=== PATIENT | male | born 1930 | race Caucasian/White ===

== ENCOUNTER 2017-01-19 12:48 | Inpatient (IN) | payer MEDICARE, BC ==
[~2017-01-19] VITALS: Ht 180.3 cm; Wt 72.6 kg
[2017-01-19 13:01] VITALS: BP 136/106
[2017-01-19 14:07] LABS: BASOPHILS % (AUTO) 1.1 % (0.0-2.0); EOSINOPHILS % (AUTO) 1.6 % (0.0-3.0); LYMPHOCYTES % (AUTO) 17.6 % (20.0-45.0); MEAN CORPUSCULAR HEMOGLOBIN 28.6 PG (27.0-31.0); MEAN CORPUSCULAR HGB CONC 30.8 G/DL (32.0-36.0); MEAN CORPUSCULAR VOLUME 93 FL (80-99); MEAN PLATELET VOLUME 10.8 FL (6.5-10.1); MONOCYTES % (AUTO) 8.7 % (1.0-10.0); PLATELET COUNT 175 K/UL (150-450); WHITE BLOOD COUNT 10.1 K/UL (4.8-10.8)
[2017-01-19 14:24] LABS: TROPONIN I < 0.30 ng/mL (<=0.30)
[2017-01-19 14:29] LABS: REFLEX LACTIC ACID YES OR NO YES
[2017-01-19 14:30] VITALS: BP 101/84
--- NOTE | 2017-01-19 14:42 | Diagnostic Imaging Report ---
Indications: Chest pain Technique: Portable AP chest Findings: Comparison: 04/21/2013 Cardiac silhouette remains upper limits of normal in size. Pulmonary vasculature remains within normal limits. Lungs and pleura remain clear. Left chest wall pacemaker remains in place.. IMPRESSION: No evidence of acute disease, unchanged Stable chronic changes as described
[2017-01-19 14:55] LABS: APPEARANCE,URINE CLEAR; KETONES,URINE NEGATIVE (NEGATIVE); LEUKOCYTE ESTERASE ,URINE NEGATIVE (NEGATIVE); NITRITE,URINE NEGATIVE (NEGATIVE); PH,URINE 7 (4.5-8.0); PROTEIN,URINE NEGATIVE (NEGATIVE); UROBILINOGEN,URINE NORMAL MG/DL (0.0-1.0)
--- NOTE | 2017-01-19 15:53 | Diagnostic Imaging Report ---
Indications: Altered mental status Technique: Continuous helical CT imaging of the brain was performed with automatic exposure control on a Siemens sensation [address] scanner. Axial and coronal images were reconstructed at 5 mm slice thickness and interval. CTDI volume(s): 70 mGy Total DLP: 1393 mGy-cm Findings: Comparison: 04/21/2013 Confluent low attenuation compatible with chronic microvascular ischemic changes throughout the bilateral cerebral periventricular and deep white matter has significantly increased in prominence in extent. Superimposed focal low-attenuation now noted extending through the left putamen into the left coronary. Prominence of ventricles, cisterns, and sulci has also increased.. No evidence of mass or hemorrhage, mass effect, midline shift, hydrocephalus or increased intracranial pressure. Bone window images are unremarkable. Visualized paranasal sinuses and mastoid air cells are clear. IMPRESSION: New low-attenuation left basal ganglia/xiao radiata most likely infarct, acuity indeterminate. Consider MRI for further evaluation as clinically indicated.. Progression of chronic microvascular ischemic changes throughout the bilateral white matter Progression of atrophy The CT scanner at [facility] is accredited by the [employer] and the scans are performed using protocols designed to limit radiation exposure to as low as reasonably achievable to attain images of sufficient resolution adequate for diagnostic evaluation.
[2017-01-19] MEDS ORDERED: LEVOTHYROXINE75 MCG ORAL (16:19)
[2017-01-19] MEDS ORDERED: CULTURELLE1 EACH ORAL (16:19)
[2017-01-19] MEDS ORDERED: TYLENOL EXTRA500 MG ORAL (16:19)
[2017-01-19] MEDS ORDERED: POTASSIUM CHLO10 ME3 ORAL (16:19)
[2017-01-19] MEDS ORDERED: ACETAMINOPHEN120 MG RECTAL (16:19)
[2017-01-19] MEDS ORDERED: NAMENDA10 MG ORAL (16:19)
[2017-01-19] MEDS ORDERED: SPIRONOLACTONE1 EACH ORAL (16:19)
[2017-01-19] MEDS ORDERED: ATROVENT HFA12.9 GM IH (16:19)
[2017-01-19] MEDS ORDERED: PRAVASTATIN SOD20 M1 ORAL (16:19)
[2017-01-19] MEDS ORDERED: AMIODARONE HCL400 M1 ORAL (16:19)
[2017-01-19] MEDS ORDERED: FUROSEMIDE20 M1 ORAL (16:19)
[2017-01-19] MEDS ORDERED: ASPIR 8181 MG ORAL (16:19)
[2017-01-19] MEDS ORDERED: LOSARTAN POTASS50 MG ORAL (16:19)
[2017-01-19] MEDS ORDERED: VITAMIN D400 INTLU ORAL (16:19)
[2017-01-19] MEDS ORDERED: MIRALAX17 G2 ORAL (16:19)
[2017-01-19] MEDS ORDERED: ELIQUIS2.5 MG PO (16:19)
[2017-01-19] MEDS ORDERED: ARICEPT10 MG ORAL (16:19)
[2017-01-19] MEDS ORDERED: ATENOLOL50 MG ORAL (16:19)
[2017-01-19] MEDS ORDERED: LORazepam Inj 2mg/ml 1ml IV PRN (16:30)
[2017-01-19] MEDS ORDERED: Mylanta II UD 30ml ORAL PRN (16:30)
[2017-01-19] MEDS ORDERED: Nitroglycerin Subl 0.4mg tab (Bottle Of 25) SL PRN (16:30)
[2017-01-19] MEDS ORDERED: Morphine Sulfate 2mg/ml Inj IVP PRN (16:30)
[2017-01-19] MEDS ORDERED: DuoNeb 0.5-3(2.5)mg/3ml neb HHN PRN (16:30)
[2017-01-19] MEDS ORDERED: Promethazine/Codeine 5ml UD ORAL PRN (16:30)
[2017-01-19] MEDS ORDERED: Miralax 17gm pkt ORAL PRN (16:30)
[2017-01-19 16:39] LABS: ALANINE AMINOTRANSFERASE 24 U/L (3-41); ALBUMIN/GLOBULIN RATIO 1.1 (1.0-2.7); ANION GAP 14 (5-15); ASPARTATE AMINO TRANSFERASE 25 U/L (5-40); CALCIUM 8.9 mg/dL (8.6-10.2); CARBON DIOXIDE 25 mEQ/L (20-30); CHLORIDE 99 mEQ/L (98-107); HEMOLYSIS 6; POTASSIUM 4.2 mEQ/L (3.4-4.9); SODIUM 138 mEQ/L (135-145); TOTAL PROTEIN 6.3 g/dL (6.6-8.7)
--- NOTE | 2017-01-19 17:15 | Emergency Room Report ---
History of Present Illness General Chief Complaint: Altered Level of Consciousness Source: Family Member, Medical Record, Caregiver Present Illness HPI 86-year-old male presents to ED for evaluation. Knife Edger at bedside states that patient was more altered usual today. Also desaturating on room air. Placed on oxygen. Initially hypotensive. Given IV fluids with BP improved. Upon arrival patient is lethargic. Unable to provide any additional history at this time. Denies any chest pain or shortness of breath. Reports fevers or chills. nephew at bedside who is power of assistant city attorney. States that patient has multiple history of strokes. No other aggravating or relieving factors. No other associated symptoms Allergies: Coded Allergies: No Known Allergies (Unverified , 01/19/17) Patient History Past Medical History: CVA/TIA Past Surgical History: none Pertinent Family History: none Social History: Denies: alcohol use, drug use, smoking Immunizations: UTD Reviewed Nursing Documentation: PMH: Agreed, PSxH: Agreed Nursing Documentation-PMH Past Medical History: No History, Except For Hx Cancer: Yes - prostate cancer, prostatectomy Hx Cerebrovascular Accident: Yes Review of Systems All Other Systems: negative except mentioned in HPI Physical Exam Vital Signs Date Time Temp Pulse Resp B/P Pulse Ox O2 Delivery O2 Flow Rate FiO2 01/19/17 12:46 78 20 110/72 88 Non-Rebreather 15.0 01/19/17 14:30 96.5 Sp02 EP Interpretation: reviewed, normal General Appearance: lethargic, thin Head: normocephalic, atraumatic Eyes: bilateral eye PERRL, bilateral eye normal inspection ENT: hearing grossly normal, normal pharynx, no angioedema, normal voice Neck: full range of motion, supple/symm/no masses Respiratory: chest non-tender, lungs clear, normal breath sounds, speaking full sentences Cardiovascular #1: regular rate, rhythm, no edema Cardiovascular #2: 2+ carotid (R), 2+ carotid (L), 2+ radial (R), 2+ radial (L) , 2+ dorsalis pedis (R), 2+ dorsalis pedis (L) Gastrointestinal: normal bowel sounds, non tender, soft, non-distended, no guarding, no rebound Rectal: deferred Genitourinary: normal inspection, no CVA tenderness Musculoskeletal: back normal, gait/station normal, normal range of motion, non- tender Neurologic: sensory intact, other - lethargic Psychiatric: other - lethargic Reflexes: 3+ bicep (R), 3+ bicep (L), 3+ tricep (R), 3+ tricep (L), 3+ knee (R) , 3+ knee (L) Skin: normal color, no rash, warm/dry, well hydrated Lymphatic: no adenopathy Medical Decision Making Diagnostic Impression: Primary Impression: Cerebrovascular accident (CVA) Qualified Codes: I63.9 - Cerebral infarction, unspecified Additional Impression: Altered level of consciousness ER Course Hospital Course 86-year-old male presents to ED with ALOC, history of stroke, lethargic Differential diagnoses include: MA/unstable angina, SVT/Vtach/AFib, CVA/TIA Clinical course Patient placed on stretcher. on assistant bookkeeper. After initial history and physical I ordered labs, EKG, chest x-ray, and CT head labs reviewed- electrolytes ok, troponins negative, no leukocytosis, Hb/Hct stable EKG - NSR Chest x-ray- no acute process CT brain - lacunar infarct noted ? acuity Given rectal aspirin in ED. Case discussed with PMD Dr Campo. asked that I admit to Dr Harris Power of assistant city attorney (nephew) is requesting that patient be made DO NOT RESUSCITATE. form signed by nephew. I. I feel this is a highly complex case requiring extensive working including EKG/Rhythm strip, Xray/CT/US, Blood/urine lab work, repeat exams while in ED, and administration of strong opiates/narcotics for pain control, admission to hospital or close patient follow up. Diagnosis - CVA/TIA, ALOC admitted to floor in serious condition Labs Test 01/19/17 13:55 01/19/17 14:43 01/19/17 16:00 White Blood Count 10.1 K/UL (4.8-10.8) Red Blood Count 4.90 M/UL (4.70-6.10) Hemoglobin 14.0 G/DL (14.2-18.0) Hematocrit 45.6 % (42.0-52.0) Mean Corpuscular Volume 93 FL (80-99) Mean Corpuscular Hemoglobin 28.6 PG (27.0-31.0) Mean Corpuscular Hemoglobin Concent 30.8 G/DL (32.0-36.0) Red Cell Distribution Width 16.0 % (11.6-14.8) Platelet Count 175 K/UL (150-450) Mean Platelet Volume 10.8 FL (6.5-10.1) Neutrophils (%) (Auto) 71.0 % (45.0-75.0) Lymphocytes (%) (Auto) 17.6 % (20.0-45.0) Monocytes (%) (Auto) 8.7 % (1.0-10.0) Eosinophils (%) (Auto) 1.6 % (0.0-3.0) Basophils (%) (Auto) 1.1 % (0.0-2.0) Lactic Acid Level 3.40 mmol/L (0.66-2.22) 3.40 mmol/L (0.66-2.22) Troponin I < 0.30 ng/mL (<=0.30) Urine Color Yellow Urine Appearance Clear Urine pH 7 (4.5-8.0) Urine Specific [place] 1.010 (1.005-1.035) Urine Protein Negative (NEGATIVE) Urine Glucose (UA) Negative (NEGATIVE) Urine Ketones Negative (NEGATIVE) Urine Occult Blood Negative (NEGATIVE) Urine Nitrite Negative (NEGATIVE) Urine Bilirubin Negative (NEGATIVE) Urine Urobilinogen Normal MG/DL (0.0-1.0) Urine Leukocyte Esterase Negative (NEGATIVE) Sodium Level 138 mEQ/L (135-145) Potassium Level 4.2 mEQ/L (3.4-4.9) Chloride Level 99 mEQ/L (98-107) Carbon Dioxide Level 25 mEQ/L (20-30) Anion Gap 14 (5-15) Blood Urea Nitrogen 21 mg/dL (7-23) Creatinine 1.0 mg/dL (0.7-1.2) Estimat Glomerular Filtration Rate mL/min (>60) Glucose Level 132 mg/dL (74-106) Calcium Level 8.9 mg/dL (8.6-10.2) Total Bilirubin 0.3 mg/dL (0.0-1.2) Aspartate Amino Transf (AST/SGOT) 25 U/L (5-40) Alanine Aminotransferase (ALT/SGPT) 24 U/L (3-41) Alkaline Phosphatase 79 U/L (40-129) Total Creatine Kinase 23 U/L (38-174) Creatine Kinase MB 2.0 ng/mL (< 6.7) Creatine Kinase MB Relative Index 8.6 Pro-B-Type Natriuretic Peptide 1728 pg/mL (0-450) Total Protein 6.3 g/dL (6.6-8.7) Albumin 3.3 g/dL (3.5-5.2) Globulin 3.0 g/dL Albumin/Globulin Ratio 1.1 (1.0-2.7) EKG Diagnostic Results Rate: normal Rhythm: NSR ST Segments: no acute changes ASA given to the pt in ED: No Rhythm Strip Diag. Results EP Interpretation: yes Rhythm: NSR, no PVC's, no ectopy Chest X-Ray Diagnostic Results EP Interpretation: No Findings: no consolidation, no effusion, no pneumothorax, no acute cardiopulmonary disease Number of Views: 1 CT/MRI/US Diagnostic Results CT/MRI/US Diagnostic Results : Imaging Test Ordered: CT Head Impression lacunar infarct ? acuity Last Vital Signs Date Time Temp Pulse Resp B/P Pulse Ox O2 Delivery O2 Flow Rate FiO2 01/19/17 16:21 60 20 97/38 100 Room Air 01/19/17 14:30 96.5 01/19/17 12:46 15.0 Status: improved Disposition: ADMITTED INPATIENT Condition: Serious Referrals: Ruba Campo MD (PCP) RADHA GIBBS M.D. Jan 19, 2017 17:15
[2017-01-19 17:52] VITALS: BP 133/64
[2017-01-19] MEDS: D5 1/2NS 1,000 ML IV SCH (18:11)
[2017-01-19] MEDS ORDERED: Haloperidol 5mg/ml Inj IM PRN (19:30)
[2017-01-19 20:00] VITALS: BP 109/54
[2017-01-19] MEDS ORDERED: Heparin 5000 units/ml inj SUBQ SCH (21:00)
[2017-01-19] MEDS: Eliquis 2.5mg tablet ORAL SCH (21:39)
[2017-01-19] MEDS: Donepezil 10mg tab ORAL SCH (21:39)
--- NOTE | 2017-01-19 22:08 | Consultation ---
DATE OF CONSULTATION: 01/19/2017 GERIATRIC MEDICINE CONSULTATION HISTORY OF PRESENT ILLNESS: Received a call from the emergency room that the patient was brought in for change of mentation. The patient has had a history of dementia Alzheimer's type as well as multiple strokes and high blood pressure and atrial fibrillation. He has a pacemaker. MEDICATIONS: He takes at home includes Aldactone 25 mg a day, Eliquis 2.5 mg twice a day, potassium 10 mEq daily, vitamin D 1000 units a day, multivitamin one a day, Namenda 10 mg twice a day, aspirin 81 mg a day, amiodarone 200 mg a day, Aricept 10 mg a day, MiraLax 17 g daily, Synthroid 75 mcg a day, Pravachol 40 mg a day, Cozaar 50 mg a day, Tenormin 50 mg a day and Lasix 20 mg a day. PHYSICAL EXAMINATION: VITAL SIGNS: The patient is about 101/44, pulse is in the 70s, and oxygenation is about 92%. Blood sugar was 153. LUNGS: Clear to auscultation and percussion. CARDIOVASCULAR: Regular rate and rhythm. ABDOMEN: Soft, nontender, and nondistended. No hepatosplenomegaly. EXTREMITIES: Shows no edema. NEUROLOGICAL: He is alert, awake, and follows commands. LABORATORY EXAMINATION: So far shows no evidence of leukocytosis. His electrolytes are pending at this time because the blood was hemolyzed. IMPRESSION: The patient with a history of syncope. We will evaluate for any evidence of infection and then we will also send the urine for UA C&S. We will restart the medications on him. The patient lives in [facility]. When patient is medically stable will be transferred to the [facility]. I discussed the case with the family and with the consultants. Ruba Campo M.D. DR: LEIGHTON JOB#: [id number] CC:
--- NOTE | 2017-01-19 23:44 | History and Physical ---
History of Present Illness General Date patient seen: Jan 19, 2017 Reason for Hospitalization: Altered Level of Consciousness Present Illness HPI 86-year-old male with pmhx of pacemaker, multiple CVA, dementia, presents to ED for evaluation of altered mental status. He was desaturating on room air. He was initially hypotensive and received IV fluids in ER. He is admitted to rule out a new episode of CVA. Pt's nephew stating that he is DNR and DNI. Allergies: Coded Allergies: No Known Allergies (Unverified , 01/19/17) Medication History Scheduled Amiodarone Hcl* (Amiodarone Hcl*), 200 MG ORAL DAILY, (Reported) Apixaban (Eliquis), 2.5 MG PO BID, (Reported) Aspirin* (Aspir 81*), 81 MG ORAL DAILY, (Reported) Atenolol* (Tenormin*), 50 MG ORAL DAILY, (Reported) Donepezil Hcl* (Aricept*), 10 MG ORAL DAILY, (Reported) Furosemide* (Lasix*), 20 MG ORAL DAILY, (Reported) Lactobacillus Rhamnosus Gg* (Culturelle*), 1 CAP ORAL BID, (Reported) Levothyroxine Sodium* (Levothyroxine Sodium*), 75 MCG ORAL DAILY, (Reported) Losartan Potassium* (Losartan Potassium*), 50 MG ORAL DAILY, (Reported) Memantine Hcl* (Namenda*), 10 MG ORAL TWICE A DAY, (Reported) Polyethylene Glycol 3350* (Miralax*), 17 GM ORAL DAILY, (Reported) Potassium Chloride (Potassium Chloride), 10 MEQ ORAL DAILY, (Reported) Pravastatin Sod* (Pravastatin Sod*), 40 MG ORAL BEDTIME, (Reported) Spironolact/Hydrochlorothiazid (Spironolactone-Hctz 25-25 Tab), Unknown Dose ORAL DAILY, (Reported) Vitamin D (Vitamin D3), 1,000 UNITS ORAL DAILY, (Reported) Scheduled PRN Acetaminophen* (Tylenol*), 120 MG RECTAL Q4H PRN for Mild Pain/Temp > 100.5, ( Reported) Acetaminophen* (Tylenol Extra Strength*), 325 MG ORAL Q6H PRN for Mild Pain/ Temp > 100.5, (Reported) Miscellaneous Medications Ipratropium [place] (Atrovent Hfa), 12.9 GM IH, (Reported) Patient History Limited by: medical condition Healthcare decision maker Bev [place] Resuscitation status Do Not Intubate Advanced Directive on File Yes Past Medical/Surgical History Past Medical/Surgical History: (1) Cerebrovascular accident (CVA) (2) multiple lacunar infarcts, old (3) Altered level of consciousness Review of Systems All Other Systems: negative except mentioned in HPI Physical Exam General Appearance: cachetic HEENT: normocephalic, atraumatic Neck: non-tender, normal alignment, supple Respiratory/Chest: chest wall non-tender, lungs clear Breasts: no masses Cardiovascular/Chest: normal peripheral pulses, normal rate Abdomen: normal bowel sounds, non tender Genitourinary/Rectal: normal genital exam, normal rectal exam Extremities: normal range of motion, non-tender Neurologic: hat brim curler II-XII grossly normal, abnormal gait Last 24 Hour Vital Signs Date Time Temp Pulse Resp B/P Pulse Ox O2 Delivery O2 Flow Rate FiO2 01/19/17 20:00 98.1 62 20 109/54 98 Room Air 01/19/17 17:52 97.7 61 20 133/64 94 Room Air 01/19/17 16:21 60 20 97/38 100 Room Air 01/19/17 14:30 96.5 60 20 101/84 100 Room Air 01/19/17 13:01 60 20 136/106 100 Room Air 01/19/17 12:46 78 20 110/72 88 Non-Rebreather 15.0 Laboratory Tests Test 01/19/17 13:55 01/19/17 14:43 01/19/17 16:00 White Blood Count 10.1 K/UL (4.8-10.8) Red Blood Count 4.90 M/UL (4.70-6.10) Hemoglobin 14.0 G/DL (14.2-18.0) L Hematocrit 45.6 % (42.0-52.0) Mean Corpuscular Volume 93 FL (80-99) Mean Corpuscular Hemoglobin 28.6 PG (27.0-31.0) Mean Corpuscular Hemoglobin Concent 30.8 G/DL (32.0-36.0) L Red Cell Distribution Width 16.0 % (11.6-14.8) H Platelet Count 175 K/UL (150-450) Mean Platelet Volume 10.8 FL (6.5-10.1) H Neutrophils (%) (Auto) 71.0 % (45.0-75.0) Lymphocytes (%) (Auto) 17.6 % (20.0-45.0) L Monocytes (%) (Auto) 8.7 % (1.0-10.0) Eosinophils (%) (Auto) 1.6 % (0.0-3.0) Basophils (%) (Auto) 1.1 % (0.0-2.0) Lactic Acid Level 3.40 mmol/L (0.66-2.22) H 3.40 mmol/L (0.66-2.22) H Troponin I < 0.30 ng/mL (<=0.30) Urine Color Yellow Urine Appearance Clear Urine pH 7 (4.5-8.0) Urine Specific [place] 1.010 (1.005-1.035) Urine Protein Negative (NEGATIVE) Urine Glucose (UA) Negative (NEGATIVE) Urine Ketones Negative (NEGATIVE) Urine Occult Blood Negative (NEGATIVE) Urine Nitrite Negative (NEGATIVE) Urine Bilirubin Negative (NEGATIVE) Urine Urobilinogen Normal MG/DL (0.0-1.0) Urine Leukocyte Esterase Negative (NEGATIVE) Sodium Level 138 mEQ/L (135-145) Potassium Level 4.2 mEQ/L (3.4-4.9) Chloride Level 99 mEQ/L (98-107) Carbon Dioxide Level 25 mEQ/L (20-30) Anion Gap 14 (5-15) Blood Urea Nitrogen 21 mg/dL (7-23) Creatinine 1.0 mg/dL (0.7-1.2) Estimat Glomerular Filtration Rate mL/min (>60) Glucose Level 132 mg/dL (74-106) H Calcium Level 8.9 mg/dL (8.6-10.2) Total Bilirubin 0.3 mg/dL (0.0-1.2) Aspartate Amino Transf (AST/SGOT) 25 U/L (5-40) Alanine Aminotransferase (ALT/SGPT) 24 U/L (3-41) Alkaline Phosphatase 79 U/L (40-129) Total Creatine Kinase 23 U/L (38-174) L Creatine Kinase MB 2.0 ng/mL (< 6.7) Creatine Kinase MB Relative Index 8.6 Pro-B-Type Natriuretic Peptide 1728 pg/mL (0-450) H Total Protein 6.3 g/dL (6.6-8.7) L Albumin 3.3 g/dL (3.5-5.2) L Globulin 3.0 g/dL Albumin/Globulin Ratio 1.1 (1.0-2.7) Height (Feet): 5 Height (Inches): 11.00 Weight (Pounds): 160 Medications Current Medications Medications (Trade) Dose Ordered Sig/Ángel Route PRN Reason Start Time Stop Time Status Last Admin Dose Admin Acetaminophen (Tylenol) 650 mg Q4H PRN ORAL fever 01/19/17 16:30 02/18/17 16:29 Al Hydroxide/Mg Hydroxide (Mylanta II) 30 ml Q6H PRN ORAL dyspepsia 01/19/17 16:30 02/18/17 16:29 Albuterol/ Ipratropium (DuoNeb 0.5-3(2.5)mg/3ml) 3 ml Q4H PRN HHN Shortness of Breath 01/19/17 16:30 01/24/17 16:29 Amiodarone HCl (Cordarone) 200 mg DAILY ORAL 01/20/17 09:00 02/19/17 08:59 Apixaban (Eliquis) 2.5 mg Q12HR ORAL 01/19/17 21:00 02/18/17 20:59 01/19/17 21:39 Aspirin (ASA) 81 mg DAILY ORAL 01/20/17 09:00 02/19/17 08:59 Clonidine HCl (Catapres) 0.1 mg Q4H PRN ORAL For High Blood Pressure 01/19/17 16:30 02/18/17 16:29 Dextrose (Dextrose 50%) STAT PRN IV Hypoglycemia 01/19/17 16:30 02/18/17 16:29 Dextrose/Sodium Chloride (D5 0.45% NS) 1,000 ml @ 50 mls/hr Q20H IV 01/19/17 17:00 02/18/17 16:59 01/19/17 18:11 Donepezil HCl (Aricept) 10 mg QHS ORAL 01/19/17 21:00 02/18/17 20:59 01/19/17 21:39 Haloperidol Lactate (Haldol) 2 mg Q6H PRN IM Agitation 01/19/17 19:30 02/18/17 19:29 Levothyroxine Sodium 75 mcg 75 mcg ACBREAKFAST ORAL 01/20/17 06:30 02/19/17 06:29 Memantine (Namenda) 10 mg BID ORAL 01/20/17 09:00 02/19/17 08:59 Nitroglycerin (Ntg) 0.4 mg Q5M X 3 DOSES PRN SL Prn Chest Pain 01/19/17 16:30 02/18/17 16:29 Ondansetron HCl (Zofran) 4 mg Q6H PRN IVP Nausea & Vomiting 01/19/17 16:30 02/18/17 16:29 Polyethylene Glycol (Miralax) 17 gm HSPRN PRN ORAL Constipation 01/19/17 16:30 02/18/17 16:29 Promethazine HCl/ Codeine (Phenergan with Codeine) 5 ml Q4H PRN ORAL For Cough 01/19/17 16:30 02/18/17 16:29 Quetiapine Fumarate (SEROquel) 25 mg HSPRN PRN ORAL Agitation at bedtime 01/19/17 21:00 02/18/17 20:59 01/19/17 21:39 Assessment/Plan Problem List: (1) Altered level of consciousness ICD Codes: R40.4 - Transient alteration of awareness SNOMED: 6394273 (2) multiple lacunar infarcts, old (3) Vascular dementia ICD Codes: F01.50 - Vascular dementia without behavioral disturbance SNOMED: 179548301 (4) Atrial fibrillation ICD Codes: I48.91 - Unspecified atrial fibrillation SNOMED: 51352994 Assessment/Plan NPO IV fluids swallow study symptomatic treatment check electrolytes continue cardiac meds YESICA GOODWIN Jan 19, 2017 23:44
[2017-01-20] VITALS: BP 143/70
[2017-01-20 04:00] VITALS: BP 139/65
[2017-01-20 06:36] LABS: BASOPHILS % (AUTO) 1.1 % (0.0-2.0); LYMPHOCYTES % (AUTO) 30.3 % (20.0-45.0); MEAN CORPUSCULAR HGB CONC 31.6 G/DL (32.0-36.0); MEAN CORPUSCULAR VOLUME 92 FL (80-99); MEAN PLATELET VOLUME 10.3 FL (6.5-10.1); MONOCYTES % (AUTO) 9.8 % (1.0-10.0); NEUTROPHILS % (AUTO) 54.7 % (45.0-75.0); PLATELET COUNT 123 K/UL (150-450); RED BLOOD COUNT 4.36 M/UL (4.70-6.10); WHITE BLOOD COUNT 6.6 K/UL (4.8-10.8)
[2017-01-20 06:46] LABS: INR 1.2 (0.9-1.1); PROTHROMBIN TIME 11.9 SEC (9.30-11.50)
[2017-01-20 07:09] LABS: ALANINE AMINOTRANSFERASE 23 U/L (3-41); ANION GAP 13 (5-15); ASPARTATE AMINO TRANSFERASE 21 U/L (5-40); CALCIUM 9.3 mg/dL (8.6-10.2); CARBON DIOXIDE 28 mEQ/L (20-30); CHLORIDE 100 mEQ/L (98-107); CHOLESTEROL 146 mg/dL (< 200); CHOLESTEROL/HDL RATIO 2.4 (3.3-4.4); HEMOLYSIS 4; LDL CHOLESTEROL (CALC.) 61 mg/dL (60-99); POTASSIUM 3.8 mEQ/L (3.4-4.9); SODIUM 141 mEQ/L (135-145); TOTAL PROTEIN 6.4 g/dL (6.6-8.7)
[2017-01-20 08:44] VITALS: BP 100/55
[2017-01-20] MEDS: Aspirin Baby 81mg ORAL SCH (09:00)
[2017-01-20] MEDS: Memantine 10mg tab ORAL SCH ×2 (09:00→17:10)
[2017-01-20 12:47] VITALS: BP 115/63
[2017-01-20] MEDS: D5 1/2NS 1,000 ML IV SCH (12:57)
[2017-01-20] MEDS: Eliquis 2.5mg tablet ORAL SCH ×2 (12:57→20:48)
[2017-01-20] MEDS: Amiodarone 200mg tab ORAL SCH (12:57)
--- NOTE | 2017-01-20 14:09 | Neurology Progress Note ---
Objective Physical Exam Last Vital Signs Date Time Temp Pulse Resp B/P Pulse Ox O2 Delivery O2 Flow Rate FiO2 01/20/17 12:47 97.0 60 19 115/63 95 Room Air 01/19/17 12:46 15.0 Laboratory Tests Test 01/19/17 14:43 01/19/17 16:00 01/20/17 05:05 Urine Color Yellow Urine Appearance Clear Urine pH 7 (4.5-8.0) Urine Specific [place] 1.010 (1.005-1.035) Urine Protein Negative (NEGATIVE) Urine Glucose (UA) Negative (NEGATIVE) Urine Ketones Negative (NEGATIVE) Urine Occult Blood Negative (NEGATIVE) Urine Nitrite Negative (NEGATIVE) Urine Bilirubin Negative (NEGATIVE) Urine Urobilinogen Normal MG/DL (0.0-1.0) Urine Leukocyte Esterase Negative (NEGATIVE) Lactic Acid Level 3.40 mmol/L (0.66-2.22) H Sodium Level 138 mEQ/L (135-145) 141 mEQ/L (135-145) Potassium Level 4.2 mEQ/L (3.4-4.9) 3.8 mEQ/L (3.4-4.9) Chloride Level 99 mEQ/L (98-107) 100 mEQ/L (98-107) Carbon Dioxide Level 25 mEQ/L (20-30) 28 mEQ/L (20-30) Anion Gap 14 (5-15) 13 (5-15) Blood Urea Nitrogen 21 mg/dL (7-23) 16 mg/dL (7-23) Creatinine 1.0 mg/dL (0.7-1.2) 1.0 mg/dL (0.7-1.2) Estimat Glomerular Filtration Rate mL/min (>60) mL/min (>60) Glucose Level 132 mg/dL (74-106) H 123 mg/dL (74-106) H Calcium Level 8.9 mg/dL (8.6-10.2) 9.3 mg/dL (8.6-10.2) Total Bilirubin 0.3 mg/dL (0.0-1.2) 0.4 mg/dL (0.0-1.2) Aspartate Amino Transf (AST/SGOT) 25 U/L (5-40) 21 U/L (5-40) Alanine Aminotransferase (ALT/SGPT) 24 U/L (3-41) 23 U/L (3-41) Alkaline Phosphatase 79 U/L (40-129) 72 U/L (40-129) Total Creatine Kinase 23 U/L (38-174) L Creatine Kinase MB 2.0 ng/mL (< 6.7) Creatine Kinase MB Relative Index 8.6 Pro-B-Type Natriuretic Peptide 1728 pg/mL (0-450) H Total Protein 6.3 g/dL (6.6-8.7) L 6.4 g/dL (6.6-8.7) L Albumin 3.3 g/dL (3.5-5.2) L 3.3 g/dL (3.5-5.2) L Globulin 3.0 g/dL 3.1 g/dL Albumin/Globulin Ratio 1.1 (1.0-2.7) 1.0 (1.0-2.7) White Blood Count 6.6 K/UL (4.8-10.8) Red Blood Count 4.36 M/UL (4.70-6.10) L Hemoglobin 12.7 G/DL (14.2-18.0) L Hematocrit 40.0 % (42.0-52.0) L Mean Corpuscular Volume 92 FL (80-99) Mean Corpuscular Hemoglobin 29.0 PG (27.0-31.0) Mean Corpuscular Hemoglobin Concent 31.6 G/DL (32.0-36.0) L Red Cell Distribution Width 16.0 % (11.6-14.8) H Platelet Count 123 K/UL (150-450) L Mean Platelet Volume 10.3 FL (6.5-10.1) H Neutrophils (%) (Auto) 54.7 % (45.0-75.0) Lymphocytes (%) (Auto) 30.3 % (20.0-45.0) Monocytes (%) (Auto) 9.8 % (1.0-10.0) Eosinophils (%) (Auto) 4.0 % (0.0-3.0) H Basophils (%) (Auto) 1.1 % (0.0-2.0) Prothrombin Time 11.9 SEC (9.30-11.50) H Prothromb Time International Ratio 1.2 (0.9-1.1) H Activated Partial Thromboplast Time 27 SEC (23-33) Triglycerides Level 119 mg/dL (< 150) Cholesterol Level 146 mg/dL (< 200) LDL Cholesterol 61 mg/dL (60-99) HDL Cholesterol 61 mg/dL (> 60) H Cholesterol/HDL Ratio 2.4 (3.3-4.4) L Thyroid Stimulating Hormone (TSH) 1.710 uIU/mL (0.300-4.500) Impression/Recommendations Problems: (1) multiple lacunar infarcts, old (2) Syncope, vasovagal (3) vascular dementia, 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 VIKKI WASSERMAN Jan 20, 2017 14:09
--- NOTE | 2017-01-20 14:52 | General Progress Note ---
Assessment/Plan Assessment/Plan AFIB HPTN STROKE PSYCHOSIS NEURODEGENERATIVE DISEASE OF BRAIN CK UA CS Subjective Allergies: Coded Allergies: No Known Allergies (Unverified , 01/19/17) All Systems: reviewed and negative except above Subjective pt is alert awake follows commands Objective Last 24 Hour Vital Signs Date Time Temp Pulse Resp B/P Pulse Ox O2 Delivery O2 Flow Rate FiO2 01/20/17 12:47 97.0 60 19 115/63 95 Room Air 01/20/17 08:44 96.3 60 19 100/55 95 Room Air 01/20/17 07:28 60 18 Room Air 01/20/17 04:00 98.0 55 20 139/65 95 Room Air 01/20/17 00:00 97.9 60 18 143/70 97 Room Air 01/19/17 20:00 98.1 62 20 109/54 98 Room Air 01/19/17 17:52 97.7 61 20 133/64 94 Room Air 01/19/17 16:21 60 20 97/38 100 Room Air Intake and Output 01/19/17 01/20/17 19:00 07:00 Intake Total 0 ml 650 ml Output Total 900 ml Balance 0 ml -250 ml Intake Oral 0 ml IV Total 650 ml Output Urine Total 900 ml # Bowel Movements 2 Laboratory Tests 01/19/17 16:00: Sodium Level 138, Potassium Level 4.2, Chloride Level 99, Carbon Dioxide Level 25, Anion Gap 14, Blood Urea Nitrogen 21, Creatinine 1.0, Estimat Glomerular Filtration Rate , Glucose Level 132H, Calcium Level 8.9, Total Bilirubin 0.3, Aspartate Amino Transf (AST/SGOT) 25, Alanine Aminotransferase (ALT/SGPT) 24, Alkaline Phosphatase 79, Total Creatine Kinase 23L, Creatine Kinase MB 2.0, Creatine Kinase MB Relative Index 8.6, Pro-B-Type Natriuretic Peptide 1728H, Total Protein 6.3L, Albumin 3.3L, Globulin 3.0, Albumin/Globulin Ratio 1.1 01/20/17 05:05: Sodium Level 141, Potassium Level 3.8, Chloride Level 100, Carbon Dioxide Level 28, Anion Gap 13, Blood Urea Nitrogen 16, Creatinine 1.0, Estimat Glomerular Filtration Rate , Glucose Level 123H, Calcium Level 9.3, Total Bilirubin 0.4, Aspartate Amino Transf (AST/SGOT) 21, Alanine Aminotransferase (ALT/SGPT) 23, Alkaline Phosphatase 72, Total Protein 6.4L, Albumin 3.3L, Globulin 3.1, Albumin /Globulin Ratio 1.0, White Blood Count 6.6, Red Blood Count 4.36L, Hemoglobin 12.7L, Hematocrit 40.0L, Mean Corpuscular Volume 92, Mean Corpuscular Hemoglobin 29.0, Mean Corpuscular Hemoglobin Concent 31.6L, Red Cell Distribution Width 16.0H, Platelet Count 123L, Mean Platelet Volume 10.3H, Neutrophils (%) (Auto) 54.7, Lymphocytes (%) (Auto) 30.3, Monocytes (%) (Auto) 9.8, Eosinophils (%) (Auto) 4.0H, Basophils (%) (Auto) 1.1, Prothrombin Time 11.9H, Prothromb Time International Ratio 1.2H, Activated Partial Thromboplast Time 27, Triglycerides Level 119, Cholesterol Level 146, LDL Cholesterol 61, HDL Cholesterol 61H, Cholesterol/HDL Ratio 2.4L, Thyroid Stimulating Hormone ( TSH) 1.710 Height (Feet): 5 Height (Inches): 11.00 Weight (Pounds): 160 Cardiovascular: regular rhythm Respiratory/Chest: lungs clear, normal breath sounds Abdomen: normal bowel sounds, non tender, soft Ruba Campo MD Jan 20, 2017 14:52
[2017-01-20 16:00] VITALS: BP 141/62
[2017-01-20] MEDS ORDERED: D5 1/2NS 1000ml IV ONE ×2 (16:50)
--- NOTE | 2017-01-20 17:04 | Pulmonology Progress Note ---
Assessment/Plan Problems: (1) Altered level of consciousness (2) multiple lacunar infarcts, old (3) Vascular dementia (4) Atrial fibrillation Assessment/Plan continue npo except for meds swallow study Neuro note appreciated heart rate controlled d/w nephew who confirmed the DNR status Subjective Interval Events: speaks slowly, oriented to himself Allergies: Coded Allergies: No Known Allergies (Unverified , 01/19/17) Objective Last 24 Hour Vital Signs Date Time Temp Pulse Resp B/P Pulse Ox O2 Delivery O2 Flow Rate FiO2 01/20/17 12:47 97.0 60 19 115/63 95 Room Air 01/20/17 08:44 96.3 60 19 100/55 95 Room Air 01/20/17 07:28 60 18 Room Air 01/20/17 04:00 98.0 55 20 139/65 95 Room Air 01/20/17 00:00 97.9 60 18 143/70 97 Room Air 01/19/17 20:00 98.1 62 20 109/54 98 Room Air 01/19/17 17:52 97.7 61 20 133/64 94 Room Air Intake and Output 01/19/17 01/20/17 19:00 07:00 Intake Total 0 ml 650 ml Output Total 900 ml Balance 0 ml -250 ml Intake Oral 0 ml IV Total 650 ml Output Urine Total 900 ml # Bowel Movements 2 General Appearance: WD/WN HEENT: normocephalic, atraumatic Respiratory/Chest: chest wall non-tender, lungs clear Cardiovascular: normal peripheral pulses, normal rate Abdomen: normal bowel sounds, soft, non tender Genitourinary: normal external genitalia Extremities: no cyanosis Skin: no rash 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, abnormal gait Lymphatic: no neck adenopathy Microbiology Date/Time Source Procedure Growth Status 01/19/17 20:00 Stool Clostridium difficile Toxin Assay - Final Complete Laboratory Tests 01/20/17 05:05: White Blood Count 6.6, Red Blood Count 4.36L, Hemoglobin 12.7L, Hematocrit 40.0L , Mean Corpuscular Volume 92, Mean Corpuscular Hemoglobin 29.0, Mean Corpuscular Hemoglobin Concent 31.6L, Red Cell Distribution Width 16.0H, Platelet Count 123L, Mean Platelet Volume 10.3H, Neutrophils (%) (Auto) 54.7, Lymphocytes (%) (Auto) 30.3, Monocytes (%) (Auto) 9.8, Eosinophils (%) (Auto) 4.0H, Basophils (%) (Auto) 1.1, Prothrombin Time 11.9H, Prothromb Time International Ratio 1.2H, Activated Partial Thromboplast Time 27, Sodium Level 141, Potassium Level 3.8, Chloride Level 100, Carbon Dioxide Level 28, Anion Gap 13, Blood Urea Nitrogen 16, Creatinine 1.0, Estimat Glomerular Filtration Rate , Glucose Level 123H, Calcium Level 9.3, Total Bilirubin 0.4, Aspartate Amino Transf (AST/SGOT) 21, Alanine Aminotransferase (ALT/SGPT) 23, Alkaline Phosphatase 72, Total Protein 6.4L, Albumin 3.3L, Globulin 3.1, Albumin/ Globulin Ratio 1.0, Triglycerides Level 119, Cholesterol Level 146, LDL Cholesterol 61, HDL Cholesterol 61H, Cholesterol/HDL Ratio 2.4L, Thyroid Stimulating Hormone (TSH) 1.710 Current Medications Medications (Trade) Dose Ordered Sig/Ángel Route PRN Reason Start Time Stop Time Status Last Admin Dose Admin Acetaminophen (Tylenol) 650 mg Q4H PRN ORAL fever 01/19/17 16:30 02/18/17 16:29 Al Hydroxide/Mg Hydroxide (Mylanta II) 30 ml Q6H PRN ORAL dyspepsia 01/19/17 16:30 02/18/17 16:29 Albuterol/ Ipratropium (DuoNeb 0.5-3(2.5)mg/3ml) 3 ml Q4H PRN HHN Shortness of Breath 01/19/17 16:30 01/24/17 16:29 Amiodarone HCl (Cordarone) 200 mg DAILY ORAL 01/20/17 09:00 02/19/17 08:59 01/20/17 12:57 Apixaban (Eliquis) 2.5 mg Q12HR ORAL 01/19/17 21:00 02/18/17 20:59 01/20/17 12:57 Aspirin (ASA) 81 mg DAILY ORAL 01/20/17 09:00 02/19/17 08:59 Clonidine HCl (Catapres) 0.1 mg Q4H PRN ORAL For High Blood Pressure 01/19/17 16:30 02/18/17 16:29 Dextrose (Dextrose 50%) STAT PRN IV Hypoglycemia 01/19/17 16:30 02/18/17 16:29 Dextrose/Sodium Chloride (D5 0.45% NS) 1,000 ml @ 50 mls/hr Q20H IV 01/19/17 17:00 02/18/17 16:59 01/20/17 12:57 Donepezil HCl (Aricept) 10 mg QHS ORAL 01/19/17 21:00 02/18/17 20:59 01/19/17 21:39 Haloperidol Lactate (Haldol) 2 mg Q6H PRN IM Agitation 01/19/17 19:30 02/18/17 19:29 Levothyroxine Sodium 75 mcg 75 mcg ACBREAKFAST ORAL 01/20/17 06:30 02/19/17 06:29 01/20/17 06:09 Memantine (Namenda) 10 mg BID ORAL 01/20/17 09:00 02/19/17 08:59 Nitroglycerin (Ntg) 0.4 mg Q5M X 3 DOSES PRN SL Prn Chest Pain 01/19/17 16:30 02/18/17 16:29 Ondansetron HCl (Zofran) 4 mg Q6H PRN IVP Nausea & Vomiting 01/19/17 16:30 02/18/17 16:29 Polyethylene Glycol (Miralax) 17 gm HSPRN PRN ORAL Constipation 01/19/17 16:30 02/18/17 16:29 Promethazine HCl/ Codeine (Phenergan with Codeine) 5 ml Q4H PRN ORAL For Cough 01/19/17 16:30 02/18/17 16:29 Quetiapine Fumarate (SEROquel) 25 mg HSPRN PRN ORAL Agitation at bedtime 01/19/17 21:00 02/18/17 20:59 01/19/17 21:39 YESICA GOODWIN Jan 20, 2017 17:04
[2017-01-20 20:00] VITALS: BP 139/57
[2017-01-20] MEDS: Donepezil 10mg tab ORAL SCH (20:48)
--- NOTE | 2017-01-20 22:08 | Consultation ---
DATE OF CONSULTATION: 01/20/2017 NEUROLOGIC CONSULTATION: REQUESTING PHYSICIAN: Ray Harris M.D. HISTORY OF PRESENT ILLNESS: The patient is an 86-year-old gentleman resident of [facility] was brought to this hospital after having an episode of loss of consciousness. According to the caregiver who knows the patient for at least last four months known that yesterday the patient woke up in the morning feeling fairly well, he had his breakfast with one cup of tea, got his , had some exercise walking with full assist, and after sitting in a wheelchair for about one hour, he was taken in a wheelchair to the dining room where while sitting and waiting, he suddenly become pale. His head dropped down. He become cold and sweaty. He had no involuntary movement. No tongue biting. After about a couple minutes, the patient was gradually awakened up. Paramedics were called to the scene and found him disoriented and hypotensive with a systolic blood pressure 101. There was no evidence of trauma. There was no complaint. He was able to give only his name, but no further information. While he was brought him to emergency room where he noted to be groggy. Blood pressure of 110/72, heart rate of 78, and temperature 96.5 degrees. CAT scan of the brain revealed extensive ischemic cerebrovascular disease with old left basal ganglia and lacunar infarct. Laboratory work included a CBC studies with unremarkable CBC study. Coagulation panel with INR 1.2. Chemistry panel with elevated lactic acid 3.40. Blood sugar 132. Elevated BNP of 1728. Albumin 3.3. Normal TSH. Normal lipid panel. Chest x-ray, no acute disease. Following admission to present, there was no further changes in level of consciousness except the patient being somewhat groggy, but arousable. According to caregiver, the patient is able to ambulate, but with full assist usually wheelchair-bound. He is able to eat and feed himself, but required assistance. He is able to communicate brief sentences. Remained coherent, but with evidence of poor memory and confusion. PAST MEDICAL HISTORY: The patient has a history of multiple strokes with evidence of progressive dementia, history of hyperlipidemia, hypothyroidism, history of hypertension, and atrial fibrillation currently on pacemaker. MEDICATIONS: His treatment included prior to admission included amiodarone, Eliquis, aspirin, atenolol, Aricept 10 mg, furosemide, Atrovent, levothyroxine, losartan, Namenda 10 mg b.i.d., pravastatin 40 mg at bedtime, vitamin D supplement, and spironolactone. ALLERGIES: None reported. SOCIAL HISTORY: The patient is a resident of nursing facility. He is . He has supportive family. His nephew has power of corporate associate attorney. REVIEW OF SYMPTOMS: Limited due to the patient's status who informed only that he is not feeling well. PHYSICAL EXAMINATION: GENERAL: This is a well-developed and well-nourished man, lying in bed comfortably and appears to be asleep. VITAL SIGNS: Blood pressure 100/55, temperature 98.3 degrees, and pulse oximetry 95 %. HEENT: Head, normocephalic. No evidence of trauma. Eyes, ears, and throat are clear. NECK: Rigid in all directions. MUSCULOSKELETAL: Diffuse rigidity, but able to move arms and legs nor limitation. PERIPHERAL PULSES: A 1+ symmetric. SKIN: Unremarkable. No rash. MENTAL STATUS: The patient is arousable when stimulated, open eyes. Responding briefly yes and no. He was able to give his name and name of his caregiver, who is able to follow few commands with delay. CRANIAL NERVES II: Pupils both responding to light and accommodation. Extraocular movement full range. Visual rice are full to confrontation. Fundi poorly visualized. CRANIAL NERVES V: Normal corneal responses. CRANIAL NERVE VII: Poor facial expression. CRANIAL NERVE VIII: Grossly normal hearing. CRANIAL NERVES IX THROUGH XII: Tongue is in midline. Symmetric palate elevation. MOTOR EXAMINATION: Revealed significant diffuse rigidity, able to lift arms and legs against the gravity. Strength 5/5. Deep reflexes very brisk 3+ bilaterally. Plantar responses are mute. SENSORY EXAMINATION: Withdrawing to pin stimulation. IMPRESSION: 1. The patient is an 86-year-old man with extensive ischemic cerebrovascular disease and multiple lacunar strokes now presenting with a syncopal episode, most likely vasovagal in origin. 2. Dehydration. 3. Vascular dementia. 4. Atrial fibrillation on pacemaker and anticoagulation. 5. Hypertension . 6. History of hypothyroidism. DISCUSSION: The patient reportedly consumes small amount of fluid not more than three to four glasses a day, which obviously makes him prompt to be dehydrated with significant of fluid while sitting or standing position. There is no radiological evidence of acute stroke although the patient has extensive ischemic changes with old multiple lacunar stroke contributing to generalized rigidity with upper motor neuron deficit, dementia, and markedly abnormal gait. The patient encouraged to continue with p.o. hydration , avoid polypharmacy treatment to be reviewed with the attending physician to hold on Aricept, Namenda, and unessential treatment. The patient continue with protocol and speech therapy assessment to evaluate swallow study. The patient currently on Eliquis and aspirin. This to be deferred for Cardiology. Thank you for allowing me to see this interesting patient in neurological consultation. Robb Scott M.D. DR: Didier JOB#: [id number] CC:
[2017-01-21] VITALS: BP 117/54
[2017-01-21 04:00] VITALS: BP 144/57
[2017-01-21] MEDS: D5 1/2NS 1,000 ML IV SCH (06:06)
[2017-01-21 08:00] VITALS: BP 150/80
[2017-01-21] MEDS: Aspirin Baby 81mg ORAL SCH (08:51)
[2017-01-21] MEDS: Memantine 10mg tab ORAL SCH ×2 (08:51→17:51)
[2017-01-21] MEDS: Amiodarone 200mg tab ORAL SCH (08:51)
[2017-01-21] MEDS: Eliquis 2.5mg tablet ORAL SCH ×3 (08:51→20:28)
[2017-01-21 12:00] VITALS: BP 142/59
[2017-01-21 16:00] VITALS: BP 122/46
[2017-01-21] MEDS ORDERED: D5 1/2NS 1000ml IV ONE (17:22)
--- NOTE | 2017-01-21 17:56 | General Progress Note ---
Assessment/Plan Assessment/Plan AFIB HPTN STROKE PSYCHOSIS NEURODEGENERATIVE DISEASE OF BRAIN CK UA CS ck swallowing test dc gu cath Subjective Allergies: Coded Allergies: No Known Allergies (Unverified , 01/19/17) Subjective pt is alert awake follows commands underwent swallowing test Objective Last 24 Hour Vital Signs Date Time Temp Pulse Resp B/P Pulse Ox O2 Delivery O2 Flow Rate FiO2 01/21/17 16:00 97.7 60 18 122/46 96 Room Air 01/21/17 12:00 98.2 62 16 142/59 98 Room Air 01/21/17 08:00 97.0 62 16 150/80 96 Room Air 01/21/17 06:49 61 18 Room Air 01/21/17 04:00 97.2 61 18 144/57 96 Room Air 01/21/17 00:00 97.3 60 21 117/54 99 Room Air 01/20/17 20:00 97.2 72 20 139/57 98 Room Air 01/20/17 19:50 68 20 Room Air Intake and Output 01/20/17 01/21/17 19:00 07:00 Intake Total 550 ml 720 ml Output Total 200 ml 450 ml Balance 350 ml 270 ml Intake Oral 120 ml IV Total 550 ml 600 ml Output Urine Total 200 ml 450 ml Height (Feet): 5 Height (Inches): 11.00 Weight (Pounds): 160 Cardiovascular: regular rhythm Respiratory/Chest: lungs clear Abdomen: normal bowel sounds, non tender, soft Ruba Campo MD Jan 21, 2017 17:56
[2017-01-21 20:00] VITALS: BP 133/54
[2017-01-21] MEDS: Donepezil 10mg tab ORAL SCH (20:28)
--- NOTE | 2017-01-21 23:34 | Cardiology Report ---
APPROVED REPORT EKG Measurement Heart [id number] Dual chamber pacemaker Abnormal ECG
[2017-01-22 00:57] VITALS: BP 135/46
[2017-01-22 04:47] VITALS: BP 132/57
[2017-01-22] MEDS: D5 1/2NS 1,000 ML IV SCH (06:11)
[2017-01-22] MEDS: Aspirin Baby 81mg ORAL SCH (08:42)
[2017-01-22] MEDS: Memantine 10mg tab ORAL SCH ×2 (08:42→17:54)
[2017-01-22] MEDS: Eliquis 2.5mg tablet ORAL SCH ×2 (08:42→20:23)
[2017-01-22] MEDS: Amiodarone 200mg tab ORAL SCH (08:42)
--- NOTE | 2017-01-22 08:45 | Cardiology Report ---
APPROVED REPORT EXAM: Two-dimensional and M-mode echocardiogram with Doppler and color Doppler. INDICATION Left ventricular function M-Mode DIMENSIONS IVSd1.1 (0.7-1.1cm)Left Atrium (MM)3.6 (1.6-4.0cm) LVDd2.9 (3.5-5.6cm)Aortic Root2.4 (2.0-3.7cm) PWd1.9 (0.7-1.1cm)Aortic Cusp Exc.1.5 (1.5-2.0cm) LVDs1.5 (2.5-4.0cm) PWs2.1 cm Normal left ventricular chamber size, systolic function and wall motion. Left ventricular ejection fraction estimated to be 60-65%. Moderate left ventricular hypertrophy. No evidence of pericardial fat or effusion. Mild bi-atrial enlargement by 2D. Focal aortic valve sclerosis with adequate cusp excursion Thickened mitral valve leaflets with normal excursion. Mitral annulus and aortic root calcification. Pulmonic valve not well visualized. Normal tricuspid valve structure. IVC is normal in size with physiologic collapse. Probable pacemaker wire present in the right side chambers. A color flow and spectral Doppler study was performed and revealed: Trace aortic regurgitation. Mild mitral regurgitation. Left ventricular diastolic dysfunction grade 3. No tricuspid regurgitation. Pulmonic regurgitation present.
[2017-01-22 08:56] VITALS: BP 109/63
--- NOTE | 2017-01-22 12:28 | Diagnostic Imaging Report ---
APPROVED REPORT CPT Code: 07906 Present Symptoms Comments: R/O DVT BILATERAL: Imaging reveals a patent deep venous system bilaterally. There is no evidence of thrombus within the femoral, popliteal or tibial segments. The greater saphenous veins are also within normal limits. Doppler indicates normal spontaneous flow within these segments.
--- NOTE | 2017-01-22 12:28 | Diagnostic Imaging Report ---
APPROVED REPORT CPT Code: 34972 Vascular Symptoms CVA/TIA: Doppler Spectral Velocity Analysis RightLeft RIGHT SIDE: CCA - Imaging reveals no significant plaque in the common carotid artery. ICA The Doppler signal indicates the degree of stenosis is minimal (20%) in the internal carotid and external carotid arteries. VERTEBRAL - The vertebral artery is patent, without evidence of stenosis or steal. LEFT SIDE: CCA - Imaging reveals no significant plaque in the common carotid artery. ICA The Doppler signal indicates the degree of stenosis is minimal (20%) in the internal carotid and external carotid arteries. VERTEBRAL - The vertebral artery is patent, without evidence of stenosis or steal.
[2017-01-22 12:46] VITALS: BP 110/71
[2017-01-22 16:00] VITALS: BP 117/49
--- NOTE | 2017-01-22 16:59 | Pulmonology Progress Note ---
Assessment/Plan Problems: (1) Altered level of consciousness (2) multiple lacunar infarcts, old (3) Vascular dementia (4) Atrial fibrillation Assessment/Plan swallow study noted start feeding pt/ot Neuro note appreciated heart rate controlled d/w nephew who confirmed the DNR status Subjective ROS Limited/Unobtainable: Yes Interval Events: later note, for 01/21 Allergies: Coded Allergies: No Known Allergies (Unverified , 01/19/17) Objective Last 24 Hour Vital Signs Date Time Temp Pulse Resp B/P Pulse Ox O2 Delivery O2 Flow Rate FiO2 01/22/17 12:46 97.0 69 19 110/71 97 Nasal Cannula 2.0 01/22/17 08:56 96.6 68 20 109/63 97 Room Air 01/22/17 07:30 63 16 Room Air 21 01/22/17 04:47 98.1 72 19 132/57 96 Room Air 01/22/17 00:57 98.1 66 19 135/46 90 Room Air 01/21/17 20:00 98.1 69 18 133/54 98 Room Air 01/21/17 19:30 60 16 Room Air 21 Intake and Output 01/21/17 01/22/17 19:00 07:00 Intake Total 500 ml 470 ml Output Total 1400 ml Balance 500 ml -930 ml Intake Oral 120 ml IV Total 500 ml 350 ml Output Urine Total 1400 ml # Voids 1 Objective General Appearance: WD/WN HEENT: normocephalic, atraumatic Respiratory/Chest: chest wall non-tender, lungs clear Cardiovascular: normal peripheral pulses, normal rate Abdomen: normal bowel sounds, soft, non tender Genitourinary: normal external genitalia 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 Microbiology Date/Time Source Procedure Growth Status 01/19/17 20:00 Stool Clostridium difficile Toxin Assay - Final Complete Current Medications Medications (Trade) Dose Ordered Sig/Ángel Route PRN Reason Start Time Stop Time Status Last Admin Dose Admin Acetaminophen (Tylenol) 650 mg Q4H PRN ORAL fever 01/19/17 16:30 02/18/17 16:29 Al Hydroxide/Mg Hydroxide (Mylanta II) 30 ml Q6H PRN ORAL dyspepsia 01/19/17 16:30 02/18/17 16:29 Albuterol/ Ipratropium (DuoNeb 0.5-3(2.5)mg/3ml) 3 ml Q4H PRN HHN Shortness of Breath 01/19/17 16:30 01/24/17 16:29 Amiodarone HCl (Cordarone) 200 mg DAILY ORAL 01/20/17 09:00 02/19/17 08:59 01/22/17 08:42 Apixaban (Eliquis) 2.5 mg Q12HR ORAL 01/19/17 21:00 02/18/17 20:59 01/21/17 20:28 Aspirin (ASA) 81 mg DAILY ORAL 01/20/17 09:00 02/19/17 08:59 01/22/17 08:42 Clonidine HCl (Catapres) 0.1 mg Q4H PRN ORAL For High Blood Pressure 01/19/17 16:30 02/18/17 16:29 Dextrose (Dextrose 50%) STAT PRN IV Hypoglycemia 01/19/17 16:30 02/18/17 16:29 Dextrose/Sodium Chloride (D5 0.45% NS) 1,000 ml @ 50 mls/hr Q20H IV 01/19/17 17:00 02/18/17 16:59 01/22/17 06:11 Donepezil HCl (Aricept) 10 mg QHS ORAL 01/19/17 21:00 02/18/17 20:59 01/21/17 20:28 Haloperidol Lactate (Haldol) 2 mg Q6H PRN IM Agitation 01/19/17 19:30 02/18/17 19:29 Levothyroxine Sodium 75 mcg 75 mcg ACBREAKFAST ORAL 01/20/17 06:30 02/19/17 06:29 01/22/17 06:11 Memantine (Namenda) 10 mg BID ORAL 01/20/17 09:00 02/19/17 08:59 01/22/17 08:42 Nitroglycerin (Ntg) 0.4 mg Q5M X 3 DOSES PRN SL Prn Chest Pain 01/19/17 16:30 02/18/17 16:29 Ondansetron HCl (Zofran) 4 mg Q6H PRN IVP Nausea & Vomiting 01/19/17 16:30 02/18/17 16:29 Polyethylene Glycol (Miralax) 17 gm HSPRN PRN ORAL Constipation 01/19/17 16:30 02/18/17 16:29 Promethazine HCl/ Codeine (Phenergan with Codeine) 5 ml Q4H PRN ORAL For Cough 01/19/17 16:30 02/18/17 16:29 Quetiapine Fumarate (SEROquel) 25 mg HSPRN PRN ORAL Agitation at bedtime 01/19/17 21:00 02/18/17 20:59 01/19/17 21:39 YESICA GOODWIN Jan 22, 2017 16:59
--- NOTE | 2017-01-22 17:00 | Pulmonology Progress Note ---
Assessment/Plan Problems: (1) Altered level of consciousness (2) multiple lacunar infarcts, old (3) Vascular dementia (4) Atrial fibrillation Assessment/Plan d/w lashaun Modi to dc to previous assisted living swallow study noted start feeding pt/ot Neuro note appreciated heart rate controlled d/w nephew who confirmed the DNR status Subjective Interval Events: more awake, talks in few sentences. Allergies: Coded Allergies: No Known Allergies (Unverified , 01/19/17) Objective Last 24 Hour Vital Signs Date Time Temp Pulse Resp B/P Pulse Ox O2 Delivery O2 Flow Rate FiO2 01/22/17 12:46 97.0 69 19 110/71 97 Nasal Cannula 2.0 01/22/17 08:56 96.6 68 20 109/63 97 Room Air 01/22/17 07:30 63 16 Room Air 21 01/22/17 04:47 98.1 72 19 132/57 96 Room Air 01/22/17 00:57 98.1 66 19 135/46 90 Room Air 01/21/17 20:00 98.1 69 18 133/54 98 Room Air 01/21/17 19:30 60 16 Room Air 21 Intake and Output 01/21/17 01/22/17 19:00 07:00 Intake Total 500 ml 470 ml Output Total 1400 ml Balance 500 ml -930 ml Intake Oral 120 ml IV Total 500 ml 350 ml Output Urine Total 1400 ml # Voids 1 Objective General Appearance: WD/WN HEENT: normocephalic, atraumatic Respiratory/Chest: chest wall non-tender, lungs clear Cardiovascular: normal peripheral pulses, normal rate Abdomen: normal bowel sounds, soft, non tender Genitourinary: normal external genitalia 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 Microbiology Date/Time Source Procedure Growth Status 01/19/17 20:00 Stool Clostridium difficile Toxin Assay - Final Complete Current Medications Medications (Trade) Dose Ordered Sig/Ángel Route PRN Reason Start Time Stop Time Status Last Admin Dose Admin Acetaminophen (Tylenol) 650 mg Q4H PRN ORAL fever 01/19/17 16:30 02/18/17 16:29 Al Hydroxide/Mg Hydroxide (Mylanta II) 30 ml Q6H PRN ORAL dyspepsia 01/19/17 16:30 02/18/17 16:29 Albuterol/ Ipratropium (DuoNeb 0.5-3(2.5)mg/3ml) 3 ml Q4H PRN HHN Shortness of Breath 01/19/17 16:30 01/24/17 16:29 Amiodarone HCl (Cordarone) 200 mg DAILY ORAL 01/20/17 09:00 02/19/17 08:59 01/22/17 08:42 Apixaban (Eliquis) 2.5 mg Q12HR ORAL 01/19/17 21:00 02/18/17 20:59 01/21/17 20:28 Aspirin (ASA) 81 mg DAILY ORAL 01/20/17 09:00 02/19/17 08:59 01/22/17 08:42 Clonidine HCl (Catapres) 0.1 mg Q4H PRN ORAL For High Blood Pressure 01/19/17 16:30 02/18/17 16:29 Dextrose (Dextrose 50%) STAT PRN IV Hypoglycemia 01/19/17 16:30 02/18/17 16:29 Dextrose/Sodium Chloride (D5 0.45% NS) 1,000 ml @ 50 mls/hr Q20H IV 01/19/17 17:00 02/18/17 16:59 01/22/17 06:11 Donepezil HCl (Aricept) 10 mg QHS ORAL 01/19/17 21:00 02/18/17 20:59 01/21/17 20:28 Haloperidol Lactate (Haldol) 2 mg Q6H PRN IM Agitation 01/19/17 19:30 02/18/17 19:29 Levothyroxine Sodium 75 mcg 75 mcg ACBREAKFAST ORAL 01/20/17 06:30 02/19/17 06:29 01/22/17 06:11 Memantine (Namenda) 10 mg BID ORAL 01/20/17 09:00 02/19/17 08:59 01/22/17 08:42 Nitroglycerin (Ntg) 0.4 mg Q5M X 3 DOSES PRN SL Prn Chest Pain 01/19/17 16:30 02/18/17 16:29 Ondansetron HCl (Zofran) 4 mg Q6H PRN IVP Nausea & Vomiting 01/19/17 16:30 02/18/17 16:29 Polyethylene Glycol (Miralax) 17 gm HSPRN PRN ORAL Constipation 01/19/17 16:30 02/18/17 16:29 Promethazine HCl/ Codeine (Phenergan with Codeine) 5 ml Q4H PRN ORAL For Cough 01/19/17 16:30 02/18/17 16:29 Quetiapine Fumarate (SEROquel) 25 mg HSPRN PRN ORAL Agitation at bedtime 01/19/17 21:00 02/18/17 20:59 01/19/17 21:39 YESICA GOODWIN Jan 22, 2017 17:00
[2017-01-22 20:00] VITALS: BP 141/73
[2017-01-22] MEDS: Donepezil 10mg tab ORAL SCH (20:23)
[2017-01-23] VITALS: BP 138/85
[2017-01-23] MEDS: D5 1/2NS 1,000 ML IV SCH (01:00)
[2017-01-23 04:00] VITALS: BP 119/77
--- NOTE | 2017-01-23 07:54 | Pulmonology Progress Note ---
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 A fibrillation ( chronic) ( rate controlled) dehydration - resolved hypothyroidism lactic acidosis pacemaker dysphagia aspiration risk PLAN OF CARE MS floor gentle hydration , on IVF, renal parameters, lytes stable syncope likely vasovagal as per neuro no diarrhea CT head negative CXR negative Carotid Duplex essentially negative Venous Duplex BLE negative ECHO with EF 60-65%, moderate LVH lipid panel stable UA negative blood cx negative stool C dif negative continue ASA chronic A fib, rate controlled with Amiodarone, continue Amiodarone and Eliquis TSH WNL, continue current dose of Synthroid fall precautions PT/OT swallow eval noted, + dysphagia, high aspiration risk diet as per ST recommendation fro quality of life with 1 to 1 supervision and strict aspiration precautions neuro follows , per neuro -no radiological evidence of acute stroke dc plan to assisted living today case discussed and evaluated by supervising physician Subjective Allergies: Coded Allergies: No Known Allergies (Unverified , 01/19/17) Subjective afebrile, no leukocytosis on RA , pulse oximetry stable, no signs of respiratory distress Objective Last 24 Hour Vital Signs Date Time Temp Pulse Resp B/P Pulse Ox O2 Delivery O2 Flow Rate FiO2 01/23/17 04:00 97.1 66 20 119/77 99 Room Air 01/23/17 00:00 97.8 71 20 138/85 98 Room Air 01/22/17 20:00 97.2 70 20 141/73 98 Room Air 01/22/17 19:38 68 18 Room Air 21 01/22/17 16:00 98.2 62 20 117/49 98 Room Air 01/22/17 12:46 97.0 69 19 110/71 97 Nasal Cannula 2.0 01/22/17 08:56 96.6 68 20 109/63 97 Room Air Intake and Output 01/22/17 01/23/17 19:00 07:00 Intake Total 470 ml 0 ml Balance 470 ml 0 ml Intake Oral 120 ml 0 ml IV Total 350 ml # Voids 1 Objective General Appearance: WD/WN HEENT: normocephalic, atraumatic Respiratory/Chest: chest wall non-tender, lungs clear Cardiovascular: normal peripheral pulses, normal rate Abdomen: normal bowel sounds, soft, non tender Genitourinary: normal external genitalia Neurologic/Psychiatric: [employer] II-XII grossly normal Respiratory/Chest: other - left chest pacemaker Current Medications Medications (Trade) Dose Ordered Sig/Ángel Route PRN Reason Start Time Stop Time Status Last Admin Dose Admin Acetaminophen (Tylenol) 650 mg Q4H PRN ORAL fever 01/19/17 16:30 02/18/17 16:29 Al Hydroxide/Mg Hydroxide (Mylanta II) 30 ml Q6H PRN ORAL dyspepsia 01/19/17 16:30 02/18/17 16:29 Albuterol/ Ipratropium (DuoNeb 0.5-3(2.5)mg/3ml) 3 ml Q4H PRN HHN Shortness of Breath 01/19/17 16:30 01/24/17 16:29 Amiodarone HCl (Cordarone) 200 mg DAILY ORAL 01/20/17 09:00 02/19/17 08:59 01/22/17 08:42 Apixaban (Eliquis) 2.5 mg Q12HR ORAL 01/19/17 21:00 02/18/17 20:59 01/22/17 20:23 Aspirin (ASA) 81 mg DAILY ORAL 01/20/17 09:00 02/19/17 08:59 01/22/17 08:42 Clonidine HCl (Catapres) 0.1 mg Q4H PRN ORAL For High Blood Pressure 01/19/17 16:30 02/18/17 16:29 Dextrose (Dextrose 50%) STAT PRN IV Hypoglycemia 01/19/17 16:30 02/18/17 16:29 Dextrose/Sodium Chloride (D5 0.45% NS) 1,000 ml @ 50 mls/hr Q20H IV 01/19/17 17:00 02/18/17 16:59 01/22/17 06:11 Donepezil HCl (Aricept) 10 mg QHS ORAL 01/19/17 21:00 02/18/17 20:59 01/22/17 20:23 Haloperidol Lactate (Haldol) 2 mg Q6H PRN IM Agitation 01/19/17 19:30 02/18/17 19:29 Levothyroxine Sodium 75 mcg 75 mcg ACBREAKFAST ORAL 01/20/17 06:30 02/19/17 06:29 01/23/17 06:10 Memantine (Namenda) 10 mg BID ORAL 01/20/17 09:00 02/19/17 08:59 01/22/17 17:54 Nitroglycerin (Ntg) 0.4 mg Q5M X 3 DOSES PRN SL Prn Chest Pain 01/19/17 16:30 02/18/17 16:29 Ondansetron HCl (Zofran) 4 mg Q6H PRN IVP Nausea & Vomiting 01/19/17 16:30 02/18/17 16:29 Polyethylene Glycol (Miralax) 17 gm HSPRN PRN ORAL Constipation 01/19/17 16:30 02/18/17 16:29 Promethazine HCl/ Codeine (Phenergan with Codeine) 5 ml Q4H PRN ORAL For Cough 01/19/17 16:30 02/18/17 16:29 Quetiapine Fumarate (SEROquel) 25 mg HSPRN PRN ORAL Agitation at bedtime 01/19/17 21:00 02/18/17 20:59 01/19/17 21:39 Shaquille [facility]ioK[facility] Psychiatric CenterLaurel Wei NP Jan 23, 2017 07:54
[2017-01-23 08:30] VITALS: BP 126/68
[2017-01-23] MEDS ORDERED: DuoNeb 0.5-3(2.5)mg/3ml neb HHN PRN (08:30)
[2017-01-23] MEDS: Amiodarone 200mg tab ORAL SCH (10:33)
[2017-01-23] MEDS: Memantine 10mg tab ORAL SCH (10:33)
[2017-01-23] MEDS: Eliquis 2.5mg tablet ORAL SCH (10:33)
[2017-01-23] MEDS: Aspirin Baby 81mg ORAL SCH (10:33)
[2017-01-23 12:43] VITALS: BP 123/49
[2017-01-23] MEDS ORDERED: D5 1/2NS 1000ml IV ONE (13:59)
--- NOTE | 2017-01-26 12:41 | Discharge Summary ---
Discharge Summary Hospital Course Date of Admission Jan 19, 2017 at 13:52 Date of Discharge Jan 23, 2017 at 14:00 Admitting Diagnosis AMS BRIAN White is a 86 year old male who was admitted on Jan 19, 2017 at 13 :52 for Altered Mental Status Consultations dc summary#[id number] Discharge Medications Continued Medications: Acetaminophen* (Tylenol*) 120 Mg Supp.rect 120 MG RECTAL Q4H PRN for Mild Pain/Temp > 100.5, SUPP Acetaminophen* (Tylenol Extra Strength*) 500 Mg Tablet 325 MG ORAL Q6H PRN for Mild Pain/Temp > 100.5, TAB 0 Refills Amiodarone Hcl* (Amiodarone Hcl*) 400 Mg Tablet 200 MG ORAL DAILY, TAB Apixaban (Eliquis) 2.5 Mg Tablet 2.5 MG PO BID, TAB Aspirin* (Aspir 81*) 81 Mg Tablet.dr 81 MG ORAL DAILY, TAB Atenolol* (Tenormin*) 50 Mg Tablet 50 MG ORAL DAILY, TAB Donepezil Hcl* (Aricept*) 10 Mg Tablet 10 MG ORAL DAILY, TAB Furosemide* (Lasix*) 20 Mg Tablet 20 MG ORAL DAILY, TAB Ipratropium [place] (Atrovent Hfa) 12.9 Gm Hfa.aer.ad 12.9 GM IH Lactobacillus Rhamnosus Gg* (Culturelle*) 1 Each Capsule 1 CAP ORAL BID, CAP Levothyroxine Sodium* (Levothyroxine Sodium*) 75 Mcg Tablet 75 MCG ORAL DAILY, TAB Take in the morning on an empty stomach, at least 30 minutes before food. Losartan Potassium* (Losartan Potassium*) 50 Mg Tablet 50 MG ORAL DAILY, TAB Memantine Hcl* (Namenda*) 10 Mg Tablet 10 MG ORAL TWICE A DAY, TAB Polyethylene Glycol 3350* (Miralax*) 17 Gm Powd.pack 17 GM ORAL DAILY, PACKET Potassium Chloride (Potassium Chloride) 10 Meq Tablet.er 10 MEQ ORAL DAILY, #30 TAB 0 Refills Pravastatin Sod* (Pravastatin Sod*) 20 Mg Tablet 40 MG ORAL BEDTIME, TAB Spironolact/Hydrochlorothiazid (Spironolactone-Hctz 25-25 Tab) 1 Each Tablet Unknown Dose ORAL DAILY, TAB Vitamin D (Vitamin D3) 400 Unit Tablet 1000 UNITS ORAL DAILY, TAB Discharge Condition Upon Discharge: stable Discharge Disposition Patient was discharged to Assisted Living Discharge Diagnoses: Shaquille ([facility]),Laurel GOMEZ Jan 26, 2017 12:41
--- NOTE | 2017-01-27 03:58 | Discharge Summary 2 SIG ---
DATE OF ADMISSION: 01/19/2017 DATE OF DISCHARGE: 01/23/2017 The patient is admitted under Dr. Harris. REASON FOR ADMISSION: 86-year-old male, presented to the emergency room for evaluation after a brief episode of loss of consciousness. He exhibited initially hypoxemia and evidence of low blood pressure.He was placed on the oxygen , started on the IV fluids. Blood pressure improved after volume support. Initially, the patient was lethargic and unable to provide any additional information. Nephew was at the bedside, who had the power of health care attorney , and was able to provide some information. No report no chest pain. No shortness of breath. No fever. No chills. The patient had a history of multiple strokes. Workup in the emergency department revealed possible CVA. ABG was within normal limits. Chest x-ray revealed no acute process. CT of the brain showed lacunar infarct, unknown acuity. Elevated lactic acid. The patient was given aspirin in the emergency department. The patient DNR status. The patient was admitted to the hospital for further management. ADMITTING DIAGNOSES: 1. Altered level of consciousness, possible cerebrovascular accident. 2. History of multiple old lacunar strokes. 3. Vascular dementia. 4. Lactic acidosis. PLAN OF CARE: The patient was admitted. Neurology consult was requested. The patient initially was NPO. Volume support provided. Swallow evaluation noted, after mental status improved to baseline. The patient passed swallow evaluation. Started on diet w as per speech therapy recommendation, able to tolerate. Continue strict aspiration precaution with 1 to 1 supervision with feeding. Urinalysis was negative. Stool for C. difficile was negative. Blood cultures were negative. According to neurologist, there was no evidence of acute cerebrovascular accident on radiological imaging. Per Neurologist , syncope was likely vasovagal in nature and due to dehydration. Carotid duplex was essentially negative. Venous duplex was negative. Echocardiogram revealed ejection fraction of 60% to 65% and moderate left ventricular hypertrophy. Lipid panel was stable. Continue aspirin. The patient has chronic atrial fibrillation. No evidence of other arrhythmia. Rate controlled. Continue rate control with amiodarone and anticoagulation with Eliquis. No evidence of bleeding. Dehydration resolved after volume support. Lactic acidosis, and hypotension as well as syncope ( partially) were all likely provoked by dehydration. TSH within normal limits. Continue current dose of Synthroid. Fall precautions maintained. The patient was working with physical and occupational therapists. Blood pressure was controlled. The patient was stable for discharge. Neurology recommended to avoid polypharmacy and limit unnecessary medication including Aricept and Namenda as proven not to have established benefit in patients with advanced dementia. DISCHARGE DIAGNOSES: 1. Acute metabolic encephalopathy on chronic dementia, resolving. 2. History of multiple old lacunar infarcts. 3. Syncope, likely vasovagal. 4. Vascular dementia. 5. 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 6. Atrial fibrillation (chronic). 7. Dehydration, resolved. 8. Hypothyroidism. 9. Lactic acidosis. 10. Pacemaker. 11. Dysphagia. DISCHARGE MEDICATIONS: See medication reconciliation list. DISCHARGE INSTRUCTIONS: The patient discharged to assisted living. Follow up with the primary medical doctor. Ray Harris M.D. Laurel AsencioCreed[facility]oor Psychiatric CenterSanjuana NRhondaPRhonda DR: DIOGENES JOB#: [id number] CC: JEFF
--- NOTE | 2017-01-27 12:07 | Diagnostic Imaging Report ---
Indications: DYSPHAGIA Technique: Patient ingested multiple substances under the supervision of speech pathology. Video fluoroscopic recording performed. Total fluoroscopy time 245 seconds. Total dose area product 0.63516 mGycm2 Comparison: none Findings: Multiple episodes of supraglottic laryngeal penetration are seen with ingestion of thin liquid barium, and mary aspiration is seen within ingested a straw. Multiple episodes of penetration of nectar thick liquid barium without aspiration demonstrated. Aspiration of honey thick liquid barium also demonstrated. Penetration without evidence aspiration of barium pur?e noted. Impression: Aspiration and penetration of multiple substances, as described Please refer to speech pathology report for more detailed analysis.
== END 2017-01-23 14:00 | disposition home or self-care (01) | DRG 70 ==
LOC: EDBD 12:48 → EMR 13:49 → 4W 13:52 → EDBEDREQ 14:39 → 4W 20:21
DX: G93.41 Metabolic encephalopathy (principal); G82.50 Quadriplegia, unspecified; I95.9 Hypotension, unspecified; I48.2 Chronic atrial fibrillation; R55 Syncope and collapse; R13.10 Dysphagia, unspecified; E86.0 Dehydration; G30.9 Alzheimer's disease, unspecified; I69.365 Other paralytic syndrome following cerebral infarction, bilateral; F01.50 Vascular dementia, unspecified severity, without behavioral disturbance, psychotic disturbance, mood disturbance, and anxiety; E03.9 Hypothyroidism, unspecified; I10 Essential (primary) hypertension; Z95.0 Presence of cardiac pacemaker; Z66 Do not resuscitate; Z79.01 Long term (current) use of anticoagulants; F02.80 Dementia in other diseases classified elsewhere, unspecified severity, without behavioral disturbance, psychotic disturbance, mood disturbance, and anxiety; F29 Unspecified psychosis not due to a substance or known physiological condition
CPT/HCPCS: 36415; 70450; 71010; 74230; 80053; 80061; 81003; 82550; 82553; 83605; 83880; 84443; 84484; 85025; 85610; 85730; 87040; 87081; 87493; 93005; 93306; 93880; 93970; 94664